=== PATIENT | male | born 1950 | race Caucasian/White ===

== ENCOUNTER 2022-01-19 16:39 | Emergency (ER) | payer MEDICARE, OTHER ==
[~2022-01-19] VITALS: Ht 170.2 cm; Wt 72.6 kg
[~2022-01-19 16:39] MED LIST: HYDROCODON-ACE1 EA10 PO
[2022-01-19] MEDS ORDERED: LIPITOR40 MG PO (17:06)
[2022-01-19] MEDS ORDERED: VITAMIN B122500 MCG PO (17:07)
[2022-01-19] MEDS ORDERED: ASPIRIN81 MG PO (17:07)
--- NOTE | 2022-01-19 20:24 | EKG ---
[facility] [address] [facility] [place], [place] [address] Signed Sinus bradycardia Otherwise normal ECG No previous ECGs available Confirmed by BRANDON GALINDO MD ([id number] on 01/19/2022 8:24:39 PM Electronically Signed By: BRANDON GALINDO MD 01/19/222023 PATIENT NAME: DUNIA SERRA Electrocardiogram DATE OF : 54 PHYSICIAN: BRANDON GALINDO MD REPORT #: [id number] REPORT IS CONFIDENTIAL AND NOT TO BE RELEASED WITHOUT AUTHORIZATION
== END 2022-01-19 19:42 | disposition home or self-care (01) ==
LOC: ED 16:39
DX: R55 Syncope and collapse (principal); F10.10 Alcohol abuse, uncomplicated; F41.9 Anxiety disorder, unspecified; E78.5 Hyperlipidemia, unspecified; F17.200 Nicotine dependence, unspecified, uncomplicated; Z79.899 Other long term (current) drug therapy; Z79.82 Long term (current) use of aspirin; Z86.73 Personal history of transient ischemic attack (TIA), and cerebral infarction without residual deficits
CPT/HCPCS: 36415; 80053; 83735; 84484; 85025; 93005; 93010; 99284-25; J7030

== ENCOUNTER 2022-03-18 18:28 | Emergency (ER) | payer MEDICARE, OTHER ==
[~2022-03-18] VITALS: Ht 170.2 cm; Wt 72.6 kg
[~2022-03-18 18:28] MED LIST changes: +ASPIRIN81 MG PO; +LIPITOR40 MG PO; +VITAMIN B122500 MCG PO
== END 2022-03-18 19:30 | disposition home or self-care (01) ==
LOC: ED 18:28
DX: S63.287A Dislocation of proximal interphalangeal joint of left little finger, initial encounter (principal); F17.200 Nicotine dependence, unspecified, uncomplicated; E78.5 Hyperlipidemia, unspecified; W19.XXXA Unspecified fall, initial encounter; Z79.899 Other long term (current) drug therapy; Z79.82 Long term (current) use of aspirin
CPT/HCPCS: 73140